=== PATIENT | female | born 2000 | race Two or more races ===

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

== ENCOUNTER 2022-05-19 19:11 | Emergency (ER) | payer OTHER ==
[~2022-05-19] VITALS: Ht 149.9 cm; Wt 47.2 kg
[~2022-05-19 19:11] MED LIST: PRENATAL TABLE1 EAC3 PO
[2022-05-19] MEDS ORDERED: ACIDO FOLICO (19:30)
== END 2022-05-19 23:49 | disposition home or self-care (01) ==
LOC: ER 19:11
DX: O02.1 Missed abortion (principal); Z3A.01 Less than 8 weeks gestation of pregnancy

== ENCOUNTER → 2022-05-21 08:00 | Outpatient (CLI) | payer OTHER ==
[~2022-05-21 08:00] MED LIST changes: +ACIDO FOLICO
== END | disposition home or self-care (01) ==
LOC: LAB 08:00 → ADM 10:00 → CIR.AMB 05-23 07:00 → EDSTATUS 05-23 10:00 → CIR.AMB 05-23 10:00
PROVIDERS: ATTEND Obstetrics & Gynecology
DX: Z20.828 Contact with and (suspected) exposure to other viral communicable diseases (principal); O02.1 Missed abortion

== ENCOUNTER 2022-05-21 22:38 | Emergency (ER) | payer OTHER ==
[~2022-05-21] VITALS: Ht 149.9 cm; Wt 46.7 kg
== END 2022-05-22 06:48 | disposition home or self-care (01) ==
LOC: ER 22:38
DX: O03.9 Complete or unspecified spontaneous abortion without complication (principal); Z3A.01 Less than 8 weeks gestation of pregnancy

== ENCOUNTER 2022-10-15 12:56 | Outpatient (CLI) | payer OTHER | END 2022-10-15 13:49 | disposition home or self-care (01) | LOC: PRENATAL 12:56 | PROVIDERS: ATTEND Obstetrics & Gynecology Maternal & Fetal Medicine | DX: Z76.1 Encounter for health supervision and care of foundling (principal) ==

== ENCOUNTER 2022-11-23 10:51 | Outpatient (CLI) | payer OTHER | END 2022-11-23 12:45 | disposition home or self-care (01) | LOC: PRENATAL 10:51 | PROVIDERS: ATTEND Obstetrics & Gynecology Maternal & Fetal Medicine | DX: O35.9XX0 Maternal care for (suspected) fetal abnormality and damage, unspecified, not applicable or unspecified (principal); O35.3XX0 Maternal care for (suspected) damage to fetus from viral disease in mother, not applicable or unspecified; Z3A.20 20 weeks gestation of pregnancy ==

== ENCOUNTER 2023-02-09 21:57 | Inpatient (IN) | payer OTHER ==
[~2023-02-09] VITALS: Ht 149.9 cm; Wt 55.8 kg
== END 2023-02-12 09:28 | disposition home or self-care (01) | DRG 833 ==
LOC: OBS/DEL 21:57 → LDR 02-10 06:58 → OBS/DEL 02-10 06:58 → OB/GYN 02-11 08:28
PROVIDERS: ADMIT Obstetrics & Gynecology; ATTEND Obstetrics & Gynecology
PROC: BY4FZZZ Ultrasonography of Third Trimester, Single Fetus (ICD-10-PCS; 2023-02-09)
PROC: 4A1HXCZ Monitoring of Products of Conception, Cardiac Rate, External Approach (ICD-10-PCS; principal; 2023-02-10)
DX: O60.03 Preterm labor without delivery, third trimester (principal); Z3A.32 32 weeks gestation of pregnancy; Z20.822 Contact with and (suspected) exposure to COVID-19

== ENCOUNTER 2023-02-19 10:10 | Outpatient (CLI) | payer OTHER | END 2023-02-19 11:12 | disposition home or self-care (01) | LOC: PRENATAL 10:10 | PROVIDERS: ATTEND Obstetrics & Gynecology Maternal & Fetal Medicine | DX: O26.849 Uterine size-date discrepancy, unspecified trimester (principal); O36.8199 Decreased fetal movements, unspecified trimester, other fetus; Z3A.33 33 weeks gestation of pregnancy ==

== ENCOUNTER 2023-02-26 06:43 | Outpatient (CLI) | payer OTHER | END 2023-02-26 08:46 | disposition home or self-care (01) | LOC: OBS/DEL 06:43 | PROVIDERS: ATTEND Obstetrics & Gynecology | DX: O47.03 False labor before 37 completed weeks of gestation, third trimester (principal); Z3A.34 34 weeks gestation of pregnancy ==

== ENCOUNTER 2023-03-22 07:57 | Inpatient (IN) | payer OTHER ==
[~2023-03-22] VITALS: Ht 147.3 cm; Wt 58.1 kg
== END 2023-03-24 13:19 | disposition home or self-care (01) | DRG 807 ==
LOC: LDR 07:57 → OB/GYN 11:28
PROVIDERS: ADMIT Obstetrics & Gynecology; ATTEND Obstetrics & Gynecology
PROC: 10E0XZZ Delivery of Products of Conception, External Approach (ICD-10-PCS; principal; 2023-03-22)
PROC: 4A1HXCZ Monitoring of Products of Conception, Cardiac Rate, External Approach (ICD-10-PCS; 2023-03-22)
DX: O80 Encounter for full-term uncomplicated delivery (principal); Z37.0 Single live birth; Z3A.37 37 weeks gestation of pregnancy; Z20.822 Contact with and (suspected) exposure to COVID-19

== ENCOUNTER 2023-11-28 17:31 | Emergency (ER) | payer OTHER ==
[~2023-11-28] VITALS: Ht 149.9 cm; Wt 51.3 kg
[2023-11-28 18:29] LABS: HEMOGLOBIN 11.7 g/dL (12.0-15.00); MEAN CELL VOLUME 79.7 fL (80.00-100.00); MEAN CORPUSCULAR HEMOGLOBIN 26.5 pg (27.00-32.0); MEAN CORPUSCULAR HGB CONC 33.3 g/dl (32.0-36.0); PLATELET COUNT 228 K/uL (150-450); RED CELL DISTRIBUTION WIDTH 13.9 % (11.5-14.5)
[2023-11-28 18:48] LABS: URINE APPEARANCE Clear; URINE BILIRRUBIN Negative (NEGATIVE); URINE BLOOD Small; URINE COLOR Yellow; URINE GLUCOSE Negative (NEGATIVE); URINE LEUKOCYTE Negative; URINE NITRATE Negative; URINE PROTEIN Negative (NEGATIVE)
[2023-11-28 18:52] LABS: URINE BACTERIA 1164.1 uL (0.0-1933); URINE EPITHELIAL CELLS 44.3 uL (0.0-38.8); URINE WBC 27.3 uL (0.0-23.2)
[2023-11-28 19:01] LABS: URINE RBC 1.7 uL (0.0-20.8)
== END 2023-11-28 20:37 | disposition home or self-care (01) ==
LOC: ER 17:31
PROVIDERS: General Practice
DX: O20.8 Other hemorrhage in early pregnancy (principal); Z3A.01 Less than 8 weeks gestation of pregnancy

== ENCOUNTER → 2024-04-15 15:43 | Outpatient (CLI) | payer OTHER | END | disposition home or self-care (01) | LOC: PRENATAL 15:43 | PROVIDERS: ATTEND Obstetrics & Gynecology Maternal & Fetal Medicine | DX: O35.9XX0 Maternal care for (suspected) fetal abnormality and damage, unspecified, not applicable or unspecified (principal); O35.3XX0 Maternal care for (suspected) damage to fetus from viral disease in mother, not applicable or unspecified; O44.02 Complete placenta previa NOS or without hemorrhage, second trimester; Z14.8 Genetic carrier of other disease; Z3A.19 19 weeks gestation of pregnancy ==

== ENCOUNTER 2024-07-15 14:53 | Outpatient (CLI) | payer OTHER | END 2024-07-15 14:54 | disposition home or self-care (01) | LOC: PRENATAL 14:53 | PROVIDERS: ATTEND Obstetrics & Gynecology Maternal & Fetal Medicine | DX: O26.849 Uterine size-date discrepancy, unspecified trimester (principal); O36.8199 Decreased fetal movements, unspecified trimester, other fetus; Z3A.31 31 weeks gestation of pregnancy ==

== ENCOUNTER 2024-08-31 13:05 | Inpatient (IN) | payer OTHER ==
[~2024-08-31] VITALS: Ht 149.9 cm; Wt 55.3 kg
[2024-08-31 13:00] VITALS: BP 103/70
[2024-08-31] MEDS ORDERED: PRENATABS RX T1 EACH PO (13:25)
[2024-08-31] MEDS ORDERED: RINGERS SOLUTION,LACTATED 1,000 ML IV SCH (13:30)
[2024-08-31 14:45] LABS: URINE APPEARANCE Turbid; URINE BILIRRUBIN Small (NEGATIVE); URINE BLOOD Negative; URINE COLOR Dark Yellow; URINE GLUCOSE Negative (NEGATIVE); URINE LEUKOCYTE Large; URINE NITRATE Negative; URINE PROTEIN 30 (NEGATIVE)
[2024-08-31 14:49] LABS: URINE CAST 6.03 uL (0.0-1.40); URINE RBC 9.1 uL (0.0-20.8); URINE WBC 970.7 uL (0.0-23.2)
[2024-08-31 15:00] LABS: HEMATOCRIT 36.8 % (36.0-45.00); HEMOGLOBIN 12.1 g/dL (12.0-15.00); MEAN CELL VOLUME 85.2 fL (80.00-100.00); MEAN CORPUSCULAR HEMOGLOBIN 27.9 pg (27.00-32.0); MEAN CORPUSCULAR HGB CONC 32.8 g/dl (32.0-36.0); RED BLOOD COUNT 4.32 M/uL (4.00-6.00); RED CELL DISTRIBUTION WIDTH 13.3 % (11.5-14.5)
[2024-08-31 15:01] LABS: PLATELET COUNT 142 K/uL (150-450)
[2024-08-31 15:03] LABS: INR < 0.93; PARTIAL THROMBOPLASTIN TIME 34.7 SECONDS (22.0-34.0); PROTHROMBIN TIME 10.1 SECONDS (9.0-11.5)
[2024-08-31 15:27] VITALS: BP 107/55
[2024-08-31 15:47] LABS: URINE BACTERIA > 9821.5 uL (0.0-1933); URINE EPITHELIAL CELLS > 201.7 uL (0.0-38.8); URINE KETONE 40 (NEGATIVE)
[2024-08-31 18:54] VITALS: BP 105/60
[2024-08-31 23:24] VITALS: BP 113/57
[2024-09-01 03:50] VITALS: BP 114/61
[2024-09-01 08:00] VITALS: BP 128/77
[2024-09-01] MEDS ORDERED: MORPHINE SULFATE 4 MG/ML CARTRIDGE IV ONE (08:45)
[2024-09-01] MEDS ORDERED: MORPHINE SULFATE 2 MG/ML CARTRIDGE IV ONE (08:45)
[2024-09-01] MEDS ORDERED: OXYTOCIN 500 ML IV SCH (08:45)
[2024-09-01] MEDS ORDERED: IBUprofen 400 MG TABLET PO PRN (11:15)
[2024-09-01 13:33] VITALS: BP 105/66
[2024-09-01 15:42] VITALS: BP 129/70
[2024-09-01 17:27] LABS: HEMATOCRIT 40.7 % (36.0-45.00); HEMOGLOBIN 13.9 g/dL (12.0-15.00); MEAN CELL VOLUME 83.1 fL (80.00-100.00); MEAN CORPUSCULAR HEMOGLOBIN 28.3 pg (27.00-32.0); MEAN CORPUSCULAR HGB CONC 34.1 g/dl (32.0-36.0); PLATELET COUNT 144 K/uL (150-450); RED CELL DISTRIBUTION WIDTH 13.5 % (11.5-14.5)
[2024-09-02 00:56] VITALS: BP 106/66
[2024-09-02 08:01] VITALS: BP 119/64
[2024-09-02] MEDS ORDERED: PNV,CALCIUM 72/IRON/FOLIC ACID 1 TAB TABLET PO SCH (09:00)
[2024-09-02 15:44] VITALS: BP 119/55
[2024-09-03 00:38] VITALS: BP 111/74
[2024-09-03 08:02] VITALS: BP 114/61
== END 2024-09-03 11:47 | disposition home or self-care (01) | DRG 807 ==
LOC: LDR 13:05 → OB/GYN 09-01 11:58
PROVIDERS: ADMIT Obstetrics & Gynecology; ATTEND Obstetrics & Gynecology
PROC: 4A1HXCZ Monitoring of Products of Conception, Cardiac Rate, External Approach (ICD-10-PCS; 2024-08-31)
PROC: 10E0XZZ Delivery of Products of Conception, External Approach (ICD-10-PCS; principal; 2024-09-01)
DX: O80 Encounter for full-term uncomplicated delivery (principal); Z37.0 Single live birth; Z3A.38 38 weeks gestation of pregnancy; Z20.822 Contact with and (suspected) exposure to COVID-19